=== PATIENT | male | born 1940 | race Caucasian/White ===

== ENCOUNTER 2022-08-23 23:32 | Emergency (ER) | payer OTHER ==
[~2022-08-23] VITALS: Ht 154.9 cm; Wt 65.8 kg
--- NOTE | 2022-08-23 23:55 | NUR ---
BIBRA90. MID STERNAL CHEST PRESSURE,INTERMITENT, RADIATING TO BACK 1 SPRAY NITRO 0.4 AND ASA 325MG. [facility] AMBULATORY. SON AT BEDSIDE
--- NOTE | 2022-08-24 00:26 | NUR ---
BLOOD COLLECTED SENT TO LAB
[2022-08-24 00:41] LABS: BASOPHILS # (AUTO) 0.1 K/uL (0.0-0.2); BASOPHILS % (AUTO) 0.8 % (0.0-2.0); EOSINOPHILS % (AUTO) 0.3 % (0.0-6.0); HEMATOCRIT 48 % (39-51); HEMOGLOBIN 16.3 g/dL (13.5-17.5); LYMPHOCYTES # (AUTO) 1.5 K/uL (0.8-4.8); LYMPHOCYTES % (AUTO) 14.5 % (20.0-44.0); MEAN CORPUSCULAR HGB CONC 34 g/dl (31.0-36.0); MEAN CORPUSCULAR VOLUME 83 fL (80-96); MONOCYTES # (AUTO) 0.5 K/uL (0.1-1.30); MONOCYTES % (AUTO) 4.6 % (2.0-12.0); NEUTROPHILS # (AUTO) 8.5 K/uL (1.8-8.9); NEUTROPHILS % (AUTO) 79.8 % (43.0-81.0); PLATELET COUNT (AUTO) 233 K/uL (150-450); RED BLOOD CELL COUNT(AUTO) 5.77 MIL/uL (4.5-6.0); WHITE BLOOD COUNT (AUTO) 10.6 K/uL (4.3-11.0)
[2022-08-24 01:08] LABS: ALANINE AMINOTRANSFERASE 12 U/L (12-78); ALBUMIN 3.8 g/dL (3.4-5.0); ALKALINE PHOSPHATASE 117 U/L (46-116); ASPARTATE AMINOTRANSFERASE 13 U/L (15-37); BILIRUBIN,DIRECT 0.2 mg/dL (0.0-0.2); CALCIUM, SERUM 9.4 mg/dL (8.5-10.1); CARBON DIOXIDE 25 mmol/L (21-32); CHLORIDE 94 mmol/L (98-107); CREATININE 1.5 mg/dL (0.6-1.3); POTASSIUM 4.3 mmol/L (3.5-5.1); SODIUM SERUM 129 mmol/L (136-145); TOTAL PROTEIN, SERUM 7.4 g/dL (6.4-8.2); UREA NITROGEN, BLOOD 20 mg/dL (7-18)
[2022-08-24 01:13] LABS: GLUCOSE 478 mg/dL (74-106)
[2022-08-24] MEDS ORDERED: INSULIN REGULAR, HUMAN 100 UNIT/ML 10 ML VIAL ONE (01:22)
[2022-08-24] MEDS ORDERED: IV NS 0.9% 1,000 ML BAG IV ONE (01:30)
[2022-08-24] MEDS ORDERED: INSULIN REGULAR, HUMAN 100 UNIT/ML 10 ML VIAL IV ONE (01:30)
--- NOTE | 2022-08-24 02:22 | NUR ---
RECIVEVED TROPONIN LEVEL OF [address] SAUCEDO.
--- NOTE | 2022-08-24 02:58 | NUR ---
Patient does not wish to proceed with medical care recommended by Yuliya Romero. Patient given information related to possible complications, up to and including , which could occur as a result of leaving the hospital at this time. Patient verbalizes understanding of risks involved due to leaving against medical advice. Patient has signed AMA form.
--- NOTE | 2022-08-24 02:58 | NUR ---
IV removed. Catheter intact and site benign. Pressure and 4x4 applied to site. No bleeding noted. Pt ambulatory with a steady gait
[2022-08-24 02:59] VITALS: BP 159/104
== END 2022-08-24 02:59 | disposition left against medical advice (07) ==
LOC: ER 23:45
DX: I21.4 Non-ST elevation (NSTEMI) myocardial infarction (principal); I11.0 Hypertensive heart disease with heart failure; I50.9 Heart failure, unspecified; E11.65 Type 2 diabetes mellitus with hyperglycemia; N28.9 Disorder of kidney and ureter, unspecified; E87.1 Hypo-osmolality and hyponatremia; Z20.822 Contact with and (suspected) exposure to COVID-19; Z60.2 Problems related to living alone
CPT/HCPCS: 99291; 93005; 96374; 96361; 87426; 71045; 85025; 80048; 80076; 85378; 36415; 84484; 85730; 83880; 82962 ×2; J1815; J7030; A4223; C9803

== ENCOUNTER 2022-09-27 20:46 | Emergency (ER) | payer OTHER ==
[~2022-09-27] VITALS: Ht 170.2 cm; Wt 73.0 kg
--- NOTE | 2022-09-27 21:10 | NUR ---
BIBRA90 FROM HOME C/O CP X1HR [employer] ADMINASP 325MG & NITRO 0.4MG NO RELIEF
--- NOTE | 2022-09-27 21:32 | NUR ---
20G IV STARTED ON R FOREARM. BLOOD COLLECTED SENT TO LAB
--- NOTE | 2022-09-27 21:32 | NUR ---
COVID ANTIGEN COLLECTED SENT TO LAB
[2022-09-27 21:41] LABS: BASOPHILS % (AUTO) 0.4 % (0.0-2.0); EOSINOPHILS % (AUTO) 0.9 % (0.0-6.0); HEMATOCRIT 45 % (39-51); HEMOGLOBIN 14.7 g/dL (13.5-17.5); MEAN CORPUSCULAR HGB CONC 33 g/dl (31.0-36.0); MEAN CORPUSCULAR VOLUME 85 fL (80-96); NEUTROPHILS % (AUTO) 77.7 % (43.0-81.0); PLATELET COUNT (AUTO) 211 K/uL (150-450); RED BLOOD CELL COUNT(AUTO) 5.37 MIL/uL (4.5-6.0); WHITE BLOOD COUNT (AUTO) 9.3 K/uL (4.3-11.0)
[2022-09-27 21:42] LABS: LYMPHOCYTES # (AUTO) 1.3 K/uL (0.8-4.8); MONOCYTES # (AUTO) 0.7 K/uL (0.1-1.30); NEUTROPHILS # (AUTO) 7.2 K/uL (1.8-8.9)
[2022-09-27 21:49] LABS: CARBON DIOXIDE 24 mmol/L (21-32); CHLORIDE 98 mmol/L (98-107); CREATININE 1.5 mg/dL (0.6-1.3); SODIUM SERUM 134 mmol/L (136-145); UREA NITROGEN, BLOOD 40 mg/dL (7-18)
[2022-09-27 21:52] LABS: GLUCOSE 465 mg/dL (74-106)
--- NOTE | 2022-09-27 21:52 | NUR ---
GLUCOSE 465; DR JOSE MIGUEL VILLASEÑOR AWARE
--- NOTE | 2022-09-27 22:00 | NUR ---
CALLED [facility], AWAITING MD CALL BACK
[2022-09-27 22:02] LABS: ALANINE AMINOTRANSFERASE 74 U/L (12-78); ALBUMIN 3.2 g/dL (3.4-5.0); ALKALINE PHOSPHATASE 178 U/L (46-116); ASPARTATE AMINOTRANSFERASE 66 U/L (15-37); BILIRUBIN,DIRECT 0.3 mg/dL (0.0-0.2); TOTAL PROTEIN, SERUM 6.7 g/dL (6.4-8.2)
--- NOTE | 2022-09-27 22:03 | NUR ---
DR. MARINELLI AT BEDSIDE
[2022-09-27] MEDS ORDERED: MORPHINE SULFATE INJ 4 MG/ML DISP.SYRIN ONE (22:13)
[2022-09-27] MEDS ORDERED: ONDANSETRON HCL/PF 4 MG/2 ML VIAL ONE (22:13)
[2022-09-27] MEDS ORDERED: FUROSEMIDE 40 MG/4 ML VIAL ONE (22:13)
[2022-09-27] MEDS ORDERED: FUROSEMIDE 40 MG/4 ML VIAL IV ONE (22:30)
[2022-09-27] MEDS ORDERED: ONDANSETRON HCL/PF 4 MG/2 ML VIAL IVP ONE (22:30)
[2022-09-27] MEDS ORDERED: MORPHINE SULFATE INJ 2 MG/ML DISP.SYRIN IV ONE (22:30)
--- NOTE | 2022-09-27 22:45 | NUR ---
DR MARINELLI ON PHONE CALL WITH DR RAMESH WATT
[2022-09-27] MEDS ORDERED: INSULIN REGULAR, HUMAN 100 UNIT/ML 10 ML VIAL IV ONE (23:00)
[2022-09-27 23:01] VITALS: BP 140/90
--- NOTE | 2022-09-27 23:25 | NUR ---
PER [facility]: [facility] [phone] BRIGITTE VELAZQUEZ ETA [facility]
--- NOTE | 2022-09-27 23:56 | NUR ---
REPORT GIVEN TO AARON HODGES AT [facility]
--- NOTE | 2022-09-28 01:52 | NUR ---
PT TRANSFERED TO [facility]
== END 2022-09-28 01:55 | disposition short-term general hospital (02) ==
LOC: ER 20:53
DX: N28.9 Disorder of kidney and ureter, unspecified (principal); I11.0 Hypertensive heart disease with heart failure; I50.9 Heart failure, unspecified; E11.65 Type 2 diabetes mellitus with hyperglycemia; Z95.0 Presence of cardiac pacemaker; Z20.822 Contact with and (suspected) exposure to COVID-19
CPT/HCPCS: 99285; 96374; 96375; 71045; 87426; 93005 ×2; 85025; 80048; 80076; 36415; 84484 ×2; 83880; J1940; J2270; J2405; C9803